=== PATIENT | female | born 1965 | race Caucasian/White ===

== ENCOUNTER 2019-05-20 06:11 | Day surgery (SDC) | payer BC ==
[~2019-05-20] VITALS: Ht 162.6 cm; Wt 75.1 kg
[2019-05-20 06:40] VITALS: Ht 162.6 cm; Wt 75.1 kg
[2019-05-20 08:14] VITALS: BP 129/83; PULSE 60; RESP 33
[2019-05-20] MEDS ORDERED: MIDAZOLAM 1 MG/ML 2 ML INJ ONE ×2 (08:20)
[2019-05-20] MEDS ORDERED: FENTAnyl 50 MCG/ML VIAL ONE (08:21)
[2019-05-20 08:35] VITALS: BP 123/75; PULSE 60; RESP 15
--- NOTE | 2019-05-20 11:32 | CONS ---
DATE OF ADMISSION: 05/20/2019 DATE OF CONSULTATION: PATIENT NAME: ANGELITO MARTINEZ TYPE OF CONSULTATION: Preoperative gastroenterology. Dear Dr. Lemos thank you very much for this kind referral. HISTORY OF PRESENT ILLNESS: Ms. Angelito toney is a 54-year-old female patient who has been ref erred to me for further evaluation of upper abdominal pain and chronic heartburn, not responding to t herapy. No past history of peptic ulcer disease. Not on nonsteroidal anti-inflammatory agents. Bernardo etite is good. No weight loss. No history of gallstones or liver disease. The patient also complai ns of change in the bowel habit with severe constipation and lower abdominal pain. PAST MEDICAL HISTORY: She has history of colon polyps. Not a hypertensive or diabetic. No heart di sease, lung problem, or kidney disease. PAST SURGICAL HISTORY: Status post hysterectomy. SOCIAL HISTORY: Nonsmoker. No alcohol abuse. FAMILY HISTORY: The patient's father had colon cancer. ALLERGIES: KEFLEX. MEDICATIONS: None. She is 5 feet 4 inches tall and weighs 245 pounds. HEART: Normal heart sounds. LUNGS: Clear. ABDOMEN: Soft, no masses. Normal bowel sounds. NEUROLOGIC: Normal neurological exam. IMPRESSION: 1. Upper abdominal pain and chronic heartburn, not responding to therapy. 2. Change in the bowel habit associated with worsening constipation and lower abdominal pain. 3. History of colon polyps. 4. Family history of colon cancer. 5. Status post hysterectomy. 6. ALLERGY TO KEFLEX. PLAN: 1. Nexium 24 hours 20 mg p.o. q.a.m. 2. MiraLax 17 grams dissolved in a glass of water p.o. daily. 3. Endoscopic examination to rule out peptic ulcer disease and erosive esophagitis. 4. Colonoscopy to rule out recurrent colon neoplasm. The procedures and possible complications were well explained to the patient. She understands and co nsents to the procedures. I thank you once again. With warmest personal regards, Dictated By: ANNY ANDERSON/LILLI Conf#: [id number] DID#: [id number]
== END 2019-05-20 16:24 | disposition home or self-care (01) ==
LOC: GIL 06:11
PROVIDERS: ATTEND Internal Medicine Gastroenterology
DX: K21.0 Gastro-esophageal reflux disease with esophagitis (principal); K29.60 Other gastritis without bleeding
CPT/HCPCS: 43239; 88305; 88312; J2250; J3010